=== PATIENT | female | born 1990 | race Caucasian/White ===

== ENCOUNTER 2016-10-13 21:08 | Inpatient (IN) | payer OTHER ==
[~2016-10-13] VITALS: Ht 160 cm; Wt 77.7 kg
[2016-10-13] MEDS ORDERED: LACTATED RINGER'S 1,000 ML IV SCH (21:50)
[2016-10-13] MEDS ORDERED: ACETAMINOPHEN 500 MG TAB PO STA (21:50)
[2016-10-13 21:54] VITALS: BP 137/90; PULSE 80; RESP 16
[2016-10-13 21:57] VITALS: BMI 30.3
[2016-10-13 21:58] VITALS: Ht 160 cm; Wt 77.7 kg
[2016-10-13] MEDS ORDERED: OXYTOCIN 30 UNITS/LR 500 ML IV PRN (22:00)
[2016-10-13] MEDS ORDERED: LIDOCAINE 1% (MPF) 30 ML INJ INJ PRN (22:00)
[2016-10-13] MEDS ORDERED: METHYLERGONOVINE 0.2 MG INJ IM PRN (22:00)
[2016-10-13] MEDS ORDERED: AMPICILLIN 2 GM/NS (PMX) 100 ML IV ONE (22:00)
[2016-10-13] MEDS ORDERED: IBUPROFEN 600 MG TAB PO PRN (22:00)
[2016-10-13] MEDS ORDERED: BUTORPHANOL 2 MG INJ IV PRN ×2 (22:00)
[2016-10-13] MEDS ORDERED: LACTATED RINGER'S 1,000 ML IV PRN (22:00)
[2016-10-13] MEDS ORDERED: OXYTOCIN 30 UNITS/LR 500 ML IV SCH ×2 (22:00)
[2016-10-13] MEDS ORDERED: MISOPROSTOL 200 MCG TAB PR PRN (22:00)
[2016-10-13] MEDS ORDERED: CARBOPROST 250 MCG INJ IM PRN (22:00)
--- NOTE | 2016-10-13 22:18 | TRIAGE ---
OB Triage Datetime Report Generated by CPN: 10/13/2016 22:18 Datetime: 10/13/2016 22:00 Labor Evaluation Frequency: IRREGULAR Monitor Mode: External Quality: Mild Resting Tone [place]: Relaxed Contraction Comments: ABDOMEN PALPATES SOFT Heart Rate FHR Baseline Rate: 160 Monitor Mode: External US FHR Baseline Changes: Tachycardia Variability: Moderate 6-25 bpm Accelerations: 15X15 Decelerations: None Category: Category II Pain Assessment Pain Scale: 7 Pain Presence: Intermittent Pain Type: Contraction Pain Location: Abdomen; Back; Perineum Pain Relief Measures: Comfort Measures Membrane Status: Ruptured Membranes Rupture Method: Spontaneous Amniotic Fluid Color: Clear Amniotic Fluid Amount: Moderate Amniotic Fluid Odor: None Datetime: 10/13/2016 21:27 Stage of : OB Triage Vaginal Exam Dilatation (cms): 4.0 Effacement (%): 80 Station: -2 Exam By: JULIANA OCHOA RN Membrane Status: Ruptured Membranes Ruptured Date/Time: 10/13/2016 21:00 Amniotic Fluid Color: Clear Amniotic Fluid Amount: Small Amniotic Fluid Odor: None Vaginal Bleeding: None Datetime: 10/13/2016 21:14 EGA: 40.2 Datetime: 10/13/2016 21:13 Time of Arrival: 10/13/2016 21:06 Arrived By: Wheelchair Arrived From: Home Chief Complaint: SROM, UCS Movement: Present Contractions: Occasional Time Contractions Began: 10/13/2016 05:00 Rupture of Membranes: Ruptured Vaginal Bleeding: None Vaginal Discharge: Denies Recent Sexual Intercouse: Denies Abdominal Trauma: Not Applicable Patient Complaints: Contractions; Back Pain Time Provider Notified: 10/13/2016 21:35 Provider Notified: JANEL Initial Plan: DAYRON DUMONT
[2016-10-13 22:57] LABS: ADD SCAN DIFF NO
[2016-10-13 23:00] LABS: BASOPHILS % 0.3 % (0.0-2.0); EOSINOPHILS # 0.1 10^3/ul (0.0-0.5); EOSINOPHILS % 1.1 % (0.0-7.0); HEMATOCRIT 37.7 % (37.0-47.0); HEMOGLOBIN 12.8 g/dl (12.0-16.0); LYMPHOCYTES # 1.3 10^3/ul (0.8-2.9); LYMPHOCYTES % 13.4 % (15.0-51.0); MEAN CORPUSCULAR HEMOGLOBIN 29.7 pg (29.0-33.0); MEAN CORPUSCULAR VOLUME 87.5 fl (82.0-101.0); MEAN PLATELET VOLUME 11.5 fl (7.4-10.4); MONOCYTE # 0.7 10^3/ul (0.3-0.9); MONOCYTES % 7.9 % (0.0-11.0); NEUTROPHIL # 7.2 10^3/ul (1.6-7.5); NEUTROPHILS % 76.8 % (39.0-77.0); PLATELET COUNT 184 10^3/UL (140-415); RED BLOOD COUNT 4.31 10^6/ul (4.20-5.40); RED CELL DISTRIBUTION WIDTH 12.6 % (11.5-14.5); WHITE BLOOD COUNT 9.4 10^3/ul (4.8-10.8)
[2016-10-13 23:09] LABS: INR 0.89; PT RATIO 0.9
[2016-10-14] VITALS (11 sets, daily range): BP systolic 109–132; BP diastolic 64–78; PULSE 75–105; RESP 16–19
[2016-10-14] MEDS ORDERED: LACTATED RINGER'S 1,000 ML IV* SCH (01:13)
--- NOTE | 2016-10-14 01:22 | LDN ---
Date/Time of Note Date/Time of Note DATE: 10/14/16 TIME: Delivery Summary of a viable baby boy over a second degree perineal laceration and a first degree vaginal laceration, weighing 3030 grams or 6# 11oz, 18.5" long, and with Apgars of 8/9. Placenta Delivered: Spontaneously Meconium: none Perineum intact?: No Perineal laceration: 2 Perineal laceration repair: Second degree perineal laceration and a first degree vaginal laceration both repaired with 2-0 chromic. Anesthesia type: Local Estimated blood loss: 300 (Not too much bleeding but uterus was very boog so pt wa given Cytotec and Hemabate.) Sponge & Needle done & correct: Yes All needle counts correct: Yes Any foreign bodies felt in the: No (vagina) Problems: Infant Delivery Information Sex Sex: male Apgars 1 Minute: 8 5 Minute: 9 Suctioning Nose & mouth suctioned at makeda: Yes Delee suction performed: No Umbilical Cord Umbilical cord with: 3 Vessels Cord presentations: no nuchal cord Cord Blood was obtained: Yes Mother & Baby Disposition Disposition Mom & Baby to Maternity; Good: Yes Baby to NICU: No CORRIE ISLAS MD Oct 14, 2016 01:22
[2016-10-14] MEDS: OXYTOCIN 30 UNITS/LR 500 ML IV SCH ×2 (01:28→04:15)
--- NOTE | 2016-10-14 01:29 | HP ---
Date/Time of Note Date/Time of Note DATE: 10/14/16 TIME: 01:22 OB - History Hx of Present Free Text/Dictation 25 y.o. with an IUP at 40w 3 d with SROM at 2000 on 10/13. Cervical exam on admission was 80% and 4cm. Estimated Due Date: Oct 11, 2016 : 2 Para: 1 Care: Good Care (Per pt as records not available.) Ultrasounds: Normal mid trimester US Obstetrical Complications: None Other Concerns: Pt has NF-1 or Neurofibromatosis. Past Family/Social History * Past Medical, Surgical, Family and Obstetric Histories reviewed with pt as prenatals not available Blood Type: O+ Rubella: unknown RPR/VDRL: Unknown GBS Status: Unknown HBsAG: Negative OB Admission Exam Vital Signs Vital Signs Vital Signs Date Time Temp Pulse Resp B/P Pulse Ox O2 Delivery O2 Flow Rate FiO2 10/13/16 21:54 98.4 80 16 137/90 99 Room Air Physical Exam HEENT: WNL Heart: Rhythm Normal Lungs: Clear Abdomen: WNL Extremities: Edema (1+) Cervical Dilatation: 4cm Effacement: Other (80%) Station: -2 Membranes: Ruptured Amniotic Fluid: Clear Heart Rate: 150's (after hydration, 180's prior) Accelerations: Accelerations Present Decelerations: No Decelerations Varibility: Moderate Contractions on Admission: < 5 Minutes Apart Last 72 hours Lab Results CBC & BMP 10/13/16 22:32 OB Assessment/Plan Reason for admission: active labor, rupture of membranes Plan: Expectant Management CORRIE ISLAS MD Oct 14, 2016 01:29
[2016-10-14] MEDS ORDERED: METHYLERGONOVINE 0.2 MG INJ IM PRN (01:30)
[2016-10-14] MEDS ORDERED: WITCH HAZEL/GLYCERIN PAD PR PRN (01:30)
[2016-10-14] MEDS ORDERED: OXYTOCIN 30 UNITS/LR 500 ML IV PRN (01:30)
[2016-10-14] MEDS ORDERED: CARBOPROST 250 MCG INJ IM PRN (01:30)
[2016-10-14] MEDS ORDERED: LANOLIN 7 GM TUBE TOP PRN (01:30)
[2016-10-14] MEDS ORDERED: BENZOCAINE 20% 56 ML SPRAY TOP PRN (01:30)
[2016-10-14] MEDS ORDERED: OXYCODONE/ASPIRIN (4.88/325) TAB PO PRN (01:30)
[2016-10-14] MEDS ORDERED: MISOPROSTOL 200 MCG TAB PR PRN (01:30)
[2016-10-14] MEDS ORDERED: AMPICILLIN 1 GM/NS (PMX) 50 ML IV SCH (02:00)
[2016-10-14 02:16] LABS: ALBUMIN 3.3 g/dl (3.3-4.9)
[2016-10-14 02:17] LABS: POTASSIUM 4.2 mmol/L (3.5-5.1)
[2016-10-14 02:19] LABS: BILIRUBIN,INDIRECT 0.2 mg/dl (0-1.1); BILIRUBIN,TOTAL 0.2 mg/dl (0.2-1.3); CREATININE 0.59 mg/dl (0.44-1.00)
[2016-10-14 02:20] LABS: ALBUMIN/GLOBULIN RATIO 1.03; CALCIUM 9.7 mg/dl (8.4-10.2); TOTAL PROTEIN 6.5 g/dl (6.1-8.1)
[2016-10-14] MEDS ORDERED: MAGNESIUM SULFATE 4 GM/100 ML 100 ML IVPB ONE (03:45)
[2016-10-14] MEDS ORDERED: MAGNESIUM SULFATE 20 GM/500 ML 500 ML IV SCH (04:00)
[2016-10-14] MEDS: IBUPROFEN 600 MG TAB PO SCH ×4 (05:31→23:46)
--- NOTE | 2016-10-14 09:59 | PN ---
Date/Time of Note Date/Time of Note DATE: 10/14/16 TIME: 09:56 OB Subjective Subjective Subjective Vital signs stable blood pressures running 120s [id number] and 70s no complain of headache blurry vision or epigastric pain magnesium sulfate will be discontinued 12 hours from the start time. OB Objective HEENT: WNL Heart: Rhythm Normal Lungs: Clear, Equal SWAPNA LOTT MD Oct 14, 2016 09:59
[2016-10-14 12:28] LABS: ADD SCAN DIFF NO
[2016-10-14 12:32] LABS: BASOPHILS % 0.3 % (0.0-2.0); EOSINOPHILS # 0.1 10^3/ul (0.0-0.5); EOSINOPHILS % 0.6 % (0.0-7.0); HEMATOCRIT 34.3 % (37.0-47.0); HEMOGLOBIN 11.7 g/dl (12.0-16.0); LYMPHOCYTES # 1.2 10^3/ul (0.8-2.9); LYMPHOCYTES % 7.4 % (15.0-51.0); MEAN CORPUSCULAR HEMOGLOBIN 29.6 pg (29.0-33.0); MEAN CORPUSCULAR HGB CONC 34.1 g/dl (32.0-37.0); MEAN CORPUSCULAR VOLUME 86.8 fl (82.0-101.0); MEAN PLATELET VOLUME 10.9 fl (7.4-10.4); MONOCYTE # 1.1 10^3/ul (0.3-0.9); MONOCYTES % 7.2 % (0.0-11.0); NEUTROPHIL # 13.3 10^3/ul (1.6-7.5); NEUTROPHILS % 83.9 % (39.0-77.0); PLATELET COUNT 236 10^3/UL (140-415); RED BLOOD COUNT 3.95 10^6/ul (4.20-5.40); RED CELL DISTRIBUTION WIDTH 12.5 % (11.5-14.5); WHITE BLOOD COUNT 15.9 10^3/ul (4.8-10.8)
[2016-10-15 03:45] VITALS: BP 115/67; PULSE 73; RESP 18
[2016-10-15] MEDS: IBUPROFEN 600 MG TAB PO SCH ×4 (05:45→23:30)
[2016-10-15 08:00] VITALS: BP 119/81; PULSE 63; RESP 17
--- NOTE | 2016-10-15 10:17 | PN ---
Date/Time of Note Date/Time of Note DATE: 10/15/16 TIME: 10:16 OB Subjective Subjective Subjective Post normal vaginal delivery day 1 VS stable, afebrile, abdomen soft, uterus firm, lochia normal, extremity normal Laboratory Tests Test 10/14/16 12:23 Basophils # 0.010^3/ul Basophils % 0.3% Eosinophils # 0.110^3/ul Eosinophils % 0.6% Hematocrit 34.3% Hemoglobin 11.7g/dl Lymphocytes # 1.210^3/ul Lymphocytes % 7.4% Magnesium Level 5.8mg/dl Mean Corpuscular Hemoglobin 29.6pg Mean Corpuscular Hemoglobin Concent 34.1g/dl Mean Corpuscular Volume 86.8fl Mean Platelet Volume 10.9fl Monocytes # 1.110^3/ul Monocytes % 7.2% Neutrophils # 13.310^3/ul Neutrophils % 83.9% Nucleated Red Blood Cells # 0.010^3/ul Nucleated Red Blood Cells % 0.0/100WBC Platelet Count 88813^3/UL Red Blood Count 3.9510^6/ul Red Cell Distribution Width 12.5% White Blood Count 15.910^3/ul Current Medications Medications (Trade) Dose Ordered Sig/Luis Route PRN Reason Start Time Stop Time Status Last Admin Dose Admin Lactated Ringer's 1,000 ml @ 125 mls/hr Q8H IV 10/13/16 21:50 10/14/16 01:17 DC 10/13/16 22:36 Ampicillin 100 ml @ 100 mls/hr ONCE ONCE IV 10/13/16 22:00 10/13/16 22:59 DC 10/13/16 22:32 Ampicillin (Ampicillin 1 Gm/ NS (Pmx)) 50 ml @ 100 mls/hr Q4H IV 10/14/16 02:00 10/14/16 02:00 DC Butorphanol Tartrate (Stadol) 1 mg Q2H PRN IV PAIN 10/13/16 22:00 10/14/16 01:17 DC Butorphanol Tartrate (Stadol) 2 mg Q2H PRN IV PAIN 10/13/16 22:00 10/14/16 01:17 DC 10/13/16 23:54 Lidocaine 30 ml 30 ml ONCE PRN INJ EPISIOTOMY/TEARING 10/13/16 22:00 10/14/16 01:17 DC Oxytocin/Lactated Ringer's 500 ml @ 125 mls/hr ONCE -MAY REPEAT X1 IV 10/13/16 22:00 10/14/16 01:17 DC 10/14/16 00:46 Oxytocin/Lactated Ringer's 500 ml @ 125 mls/hr ONCE IV 10/13/16 22:00 10/14/16 01:17 DC Ibuprofen 600 mg 600 mg ONCE PRN PO Mild Pain (Pain Score 1-3) 10/13/16 22:00 10/14/16 01:18 DC Lactated Ringer's 1,000 ml @ 2,000 mls/hr Q30M PRN IV PRE-EPIDURAL BOLUS 10/13/16 22:00 10/14/16 01:18 DC Oxytocin/Lactated Ringer's 500 ml @ 0 mls/hr ONCE PRN IV For Hemorrhage Management 10/13/16 22:00 10/14/16 01:17 DC Methylergonovine Maleate (Methergine) 0.2 mg ONCE PRN IM VAGINAL BLEEDING 10/13/16 22:00 10/14/16 01:17 DC Carboprost Tromethamine (Hemabate) 250 mcg ONCE PRN IM VAGINAL BLEEDING 10/13/16 22:00 10/14/16 01:17 DC Misoprostol (Cytotec) 1,000 mcg ONCE PRN OK VAGINAL BLEEDING 10/13/16 22:00 10/14/16 01:17 DC 10/14/16 00:58 Acetaminophen 1000 mg 1,000 mg ONCE STAT PO 10/13/16 21:50 10/13/16 22:03 DC Oxytocin/Lactated Ringer's 500 ml @ 125 mls/hr Q4H IV 10/14/16 01:13 10/14/16 09:12 DC 10/14/16 04:15 Lactated Ringer's (Lr) 1,000 ml @ 125 mls/hr Q8H IV* 10/14/16 01:13 10/14/16 16:12 DC 10/14/16 09:25 Ibuprofen (Motrin) 600 mg Q6 PO 10/14/16 06:00 10/15/16 05:45 Oxycodone/Aspirin (Percodan) 1 tab Q3H PRN PO PAIN LEVEL 1-5 10/14/16 01:30 Witch Tory/ Glycerin (Tucks Pads) 1 pad BEDSIDE MEDICATION PRN OK HEMORRHOID/EPISIOTMY PAIN 10/14/16 01:30 10/14/16 05:31 Benzocaine (Dermoplast [place]) 1 spray BEDSIDE MEDICATION PRN TOP HEMORRHOID/EPISIOTMY PAIN 10/14/16 01:30 10/14/16 05:31 Lanolin (Ejo-L-Fqmybh) 1 applic BEDSIDE MEDICATION PRN TOP BEDSIDE FOR MARY TO NIPPLES 10/14/16 01:30 Diphtheria/ Tetanus/Acell Pertussis 0.5 ml 0.5 ml ONCE ONCE IM* 10/16/16 09:00 10/16/16 09:01 Oxytocin/Lactated Ringer's 500 ml @ 0 mls/hr ONCE PRN IV For Hemorrhage Management 10/14/16 01:30 Methylergonovine Maleate (Methergine) 0.2 mg ONCE PRN IM VAGINAL BLEEDING 10/14/16 01:30 Carboprost Tromethamine (Hemabate) 250 mcg ONCE PRN IM VAGINAL BLEEDING 10/14/16 01:30 10/14/16 01:29 Misoprostol 1000 mcg 1,000 mcg ONCE PRN OK VAGINAL BLEEDING 10/14/16 01:30 Magnesium Sulfate 100 ml @ 200 mls/hr ONCE ONCE IVPB 10/14/16 03:45 10/14/16 04:14 DC 10/14/16 03:49 Magnesium Sulfate (Magnesium Sulfate 20 Gm/500 ml) 500 ml @ 50 mls/hr Q10H IV 10/14/16 04:00 10/14/16 12:01 DC 10/14/16 04:24 SWAPNA LOTT MD Oct 15, 2016 10:17
[2016-10-15 10:44] LABS: ADD SCAN DIFF NO
[2016-10-15 10:54] LABS: BASOPHIL # 0.1 10^3/ul (0.0-0.1); BASOPHILS % 0.6 % (0.0-2.0); EOSINOPHILS # 0.2 10^3/ul (0.0-0.5); EOSINOPHILS % 2.3 % (0.0-7.0); HEMATOCRIT 33.1 % (37.0-47.0); HEMOGLOBIN 10.8 g/dl (12.0-16.0); LYMPHOCYTES # 1.9 10^3/ul (0.8-2.9); LYMPHOCYTES % 23.7 % (15.0-51.0); MEAN CORPUSCULAR HEMOGLOBIN 29.4 pg (29.0-33.0); MEAN CORPUSCULAR HGB CONC 32.6 g/dl (32.0-37.0); MEAN CORPUSCULAR VOLUME 90.2 fl (82.0-101.0); MEAN PLATELET VOLUME 10.2 fl (7.4-10.4); MONOCYTE # 0.7 10^3/ul (0.3-0.9); MONOCYTES % 9.2 % (0.0-11.0); NEUTROPHILS % 63.6 % (39.0-77.0); PLATELET COUNT 248 10^3/UL (140-415); RED BLOOD COUNT 3.67 10^6/ul (4.20-5.40); WHITE BLOOD COUNT 7.8 10^3/ul (4.8-10.8)
[2016-10-15 13:29] LABS: RUBELLA ANTIBODY - IGG <0.90 index
[2016-10-15 16:00] VITALS: BP 121/83; PULSE 85; RESP 16
[2016-10-15 19:30] VITALS: BP 105/58; PULSE 69; RESP 18
[2016-10-16 03:40] VITALS: BP 112/69; PULSE 71; RESP 19
[2016-10-16] MEDS: IBUPROFEN 600 MG TAB PO SCH ×2 (05:30→12:20)
[2016-10-16 08:30] VITALS: BP 105/66; PULSE 73; RESP 18
[2016-10-16] MEDS ORDERED: DIPHTH/TET/ACEL PERTUSS (ADULT) 0.5 ML VIAL IM* ONE (09:00)
--- NOTE | 2016-10-16 12:22 | PD.PPDC ---
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
--- NOTE | 2016-10-16 12:24 | DS ---
Date/Time of Note Date/Time of Note DATE: 10/16/16 TIME: 12:23 Obstetrical Discharge Record Final Diagnosis Final Diagnosis: Term delivered Vaginal Delivery Obstetrical Delivery: Spontaneous Condition on Discharge Physical Assessment Last Vitals: Post normal vaginal delivery day 2 Vital signs stable afebrile abdomen soft uterus firm lochia normal extremity patient discharged home with follow-up instructions to be seen at the clinic in 2 weeks. Voiding: Yes Breast: Soft, non-tender, Filling Fundus: Firm Calf Tenderness: No Patient Condition: Good SWAPNA LOTT MD Oct 16, 2016 12:24
== END 2016-10-16 15:15 | disposition home or self-care (01) | DRG 775 ==
LOC: OBT 21:08 → L-D 21:09 → OBT 22:00 → L-D 22:00 → PP1 10-14 04:30
PROVIDERS: ADMIT Obstetrics & Gynecology; ATTEND Obstetrics & Gynecology
PROC: 4A1HX4Z Monitoring of Products of Conception, Cardiac Electrical Activity, External Approach (ICD-10-PCS; 2016-10-13)
PROC: 10E0XZZ Delivery of Products of Conception, External Approach (ICD-10-PCS; principal; 2016-10-14)
PROC: 0KQM0ZZ Repair Perineum Muscle, Open Approach (ICD-10-PCS; 2016-10-14)
DX: O48.0 Post-term pregnancy (principal); O26.893 Other specified pregnancy related conditions, third trimester; Q85.01 Neurofibromatosis, type 1; O70.1 Second degree perineal laceration during delivery; Z3A.40 40 weeks gestation of pregnancy; Z37.0 Single live birth
CPT/HCPCS: 36415; 80053; 83735; 84560; 85025; 85610; 85730; 86592; 86762; 86900; 86901; 87340; 90715; 99464; G0463; J0290; J2590; J3475; J7120